=== PATIENT | female | born 1980 | race Caucasian/White ===

== ENCOUNTER 2017-09-29 23:41 | Emergency (ER) | payer MEDICAID ==
[~2017-09-29] VITALS: Ht 172.7 cm; Wt 51.0 kg
[~2017-09-29 23:41] MED LIST: BUSP30TA2 PO; TRAZ-129 PO
[2017-09-30] MEDS ORDERED: IBUPROFEN 600MG TABLET PO ONE (02:15)
[2017-09-30 05:05] VITALS: BP 127/73
== END 2017-09-30 05:26 | disposition home or self-care (01) ==
LOC: ER 23:41
DX: S42.002A Fracture of unspecified part of left clavicle, initial encounter for closed fracture (principal); F17.200 Nicotine dependence, unspecified, uncomplicated; F12.10 Cannabis abuse, uncomplicated; Z88.5 Allergy status to narcotic agent; W19.XXXA Unspecified fall, initial encounter; Y93.89 Activity, other specified; Y92.89 Other specified places as the place of occurrence of the external cause; Y99.8 Other external cause status
CPT/HCPCS: 71045; 73000; 99284